=== PATIENT | male | born 1965 | race African-American/Black ===

== ENCOUNTER 2017-03-12 22:34 | Emergency (ER) | payer MEDICAID ==
[~2017-03-12] VITALS: Ht 177.8 cm; Wt 87.7 kg
[2017-03-12 22:37] VITALS: BP 145/83
[2017-03-12] MEDS ORDERED: LIDOCAINE 1%, 20ML ONE (22:45)
[2017-03-12] MEDS ORDERED: CEFAZOLIN 1,000 MG IM ONE (23:00)
[2017-03-12] MEDS ORDERED: LIDOCAINE 1%, 20ML SQ ONE (23:00)
[2017-03-12] MEDS ORDERED: SULFAMETH./TRIMETHOPRIM DS 800MG/160MG TABLET PO ONE (23:00)
[2017-03-12] MEDS ORDERED: CEFAZOLIN 1,000 MG ONE (23:14)
[2017-03-12] MEDS ORDERED: SULFAMETH./TRIMETHOPRIM DS 800MG/160MG TABLET ONE (23:14)
== END 2017-03-12 23:39 | disposition home or self-care (01) ==
LOC: ED 23:33
DX: L03.311 Cellulitis of abdominal wall (principal); L02.211 Cutaneous abscess of abdominal wall; I10 Essential (primary) hypertension; E11.9 Type 2 diabetes mellitus without complications
CPT/HCPCS: 10060; 96372; 99283; J0690

== ENCOUNTER 2017-07-12 10:57 | Emergency (ER) | payer MEDICAID ==
[~2017-07-12] VITALS: Ht 177.8 cm; Wt 71.7 kg
[2017-07-12] MEDS ORDERED: SODIUM CHLORIDE 0.9% 1,000ML IVBOLUS ONE (11:30)
[2017-07-12 12:02] LABS: HEMATOCRIT 50.5 % (39.2-51.8); HEMOGLOBIN 16.8 g/dL (13.7-18.0)
[2017-07-12 12:07] LABS: ASPARTATE AMINO TRANSFERASE 16 U/L (15-37); BLOOD UREA NITROGEN 22 mg/dL (7-18)
[2017-07-12] MEDS ORDERED: INSULIN REGULAR 100 UNITS/ML, 3ML VIAL ONE ×2 (13:36→14:35)
[2017-07-12] MEDS ORDERED: INSULIN REGULAR 100 UNITS/ML, 3ML VIAL IVPush ONE ×2 (14:00→15:00)
[2017-07-12] MEDS ORDERED: NALOXONE 1 MG/ML, 2ML ONE (14:08)
[2017-07-12] MEDS ORDERED: INSU100C5 SQ-INSULIN (14:16)
[2017-07-12] MEDS ORDERED: QUET400T4 PO (14:16)
[2017-07-12] MEDS ORDERED: DIVA500T2 PO ×2 (14:16)
[2017-07-12] MEDS ORDERED: INSU100V8 SQ (14:16)
[2017-07-12] MEDS ORDERED: QUET300T5 PO (14:16)
[2017-07-12] MEDS ORDERED: blood pressure med PO (14:16)
[2017-07-12] MEDS ORDERED: ARIP10TA33 PO (14:16)
[2017-07-12 15:56] VITALS: BP 127/81
== END 2017-07-12 15:58 | disposition home or self-care (01) ==
LOC: ED 15:52
DX: R23.4 Changes in skin texture (principal); E11.9 Type 2 diabetes mellitus without complications; R11.2 Nausea with vomiting, unspecified; R09.81 Nasal congestion; F31.9 Bipolar disorder, unspecified; I11.0 Hypertensive heart disease with heart failure; I50.9 Heart failure, unspecified; J45.909 Unspecified asthma, uncomplicated; Z79.4 Long term (current) use of insulin; Z91.14 Patient's other noncompliance with medication regimen; Z91.19 Patient's noncompliance with other medical treatment and regimen
CPT/HCPCS: 36415; 71020; 80053; 81003; 82010; 82800; 82962; 83605; 83690; 85025; 96361; 96374; 96376; 99285; J7030

== ENCOUNTER 2020-12-02 22:50 | Emergency (ER) | payer MEDICAID ==
[~2020-12-02] VITALS: Ht 180.3 cm; Wt 87.0 kg
[~2020-12-02 22:50] MED LIST: ARIP10TA33 PO; DIVA500T2 PO; INSU100C5 SQ-INSULIN; INSU100V8 SQ; QUET300T5 PO; QUET400T4 PO; blood pressure med PO
--- NOTE | 2020-12-02 22:56 | NUR ---
ASSUMED CARE OF PATIENT. PATIENT MARICRUZ REM FROM THE GROUP HOME, PT WAS REFUSED FROM THE GROUP HOME FOR HIGH BLOOD SUGAR PER EMS. PT REPORTS PAINFUL URINATION. PT ALSO REPORTS HE HAS NO BEEN TAKING HIS INSULIN. VS STABLE. NO ACUTE DISTRESS NOTED. CALL LIGHT IN [place]. WILL CONTINUE TO MONITOR.
[2020-12-02 23:11] LABS: MICROSCOPIC NOT IND
--- NOTE | 2020-12-02 23:26 | NUR ---
LAB IN ROOM
[2020-12-02 23:35] LABS: BASOPHILS % (AUTO) 1 % (0-1); EOSINOPHILS % (AUTO) 0 % (1-7); LYMPHOCYTES % (AUTO) 31 % (22-44); MD NO; MEAN CORPUSCULAR HEMOGLOBIN 26.6 pg (27.5-34.5); MEAN CORPUSCULAR HGB CONC 32.8 g/dL (33.2-36.2); MEAN PLATELET VOLUME 7.8 fL (7.4-10.4); MONOCYTES % (AUTO) 17 % (2-9); NEUTROPHILS % (AUTO) 51 % (42-75); PLATELET COUNT 280 x10^3/uL (130-400); RED BLOOD COUNT 4.88 x10^6/uL (4.38-5.82); RED CELL DISTRIBUTION WIDTH 14.4 % (9.4-14.8)
[2020-12-02 23:44] LABS: ALBUMIN 3.7 g/dL (3.4-5.0); ANION GAP 11 mmol/L (5-15); CALCIUM 8.4 mg/dL (8.5-10.1); CHLORIDE 100 mmol/L (98-107); CREATININE 1.28 mg/dL (0.7-1.3)
[2020-12-03] MEDS ORDERED: INSULIN SINGLE DOSE, ER ONE (00:49)
[2020-12-03] MEDS ORDERED: INSULIN GLARGINE 100 UNITS/ML, PEN SQ-INSULIN ONE (01:00)
[2020-12-03] MEDS ORDERED: INSULIN REGULAR 100 UNITS/ML, 3ML VIAL SQ-INSULIN ONE (01:00)
[2020-12-03 01:05] VITALS: BP 129/85
--- NOTE | 2020-12-03 01:36 | NUR ---
PT GIVEN MEDICATION EDUCTION, MEDICATION ASSISTANCE INFORMATION ALSO PROVIDED. PT IS A&O X4, VS STABLE. PT IS ABLE TO GET SELF DRESSED AND AMBULATE SAFELY AROUND ROOM AND GARRETT. PT REQUESTING A [facility]. PT HAS CELL PHONE. PT GIVEN FOOD TO GO. PT IN APPROPRIATE CLOTHING FOR WEATHER. PT DR GONZALEZ PT DOES NOT NEED TO STAY FOR GLUCOSE MONITORING. PT DISCHARGED PER DR GONZALEZ.
== END 2020-12-03 01:41 | disposition home or self-care (01) ==
LOC: ED 23:25
DX: F15.10 Other stimulant abuse, uncomplicated (principal); Z76.0 Encounter for issue of repeat prescription; Z72.9 Problem related to lifestyle, unspecified; F17.210 Nicotine dependence, cigarettes, uncomplicated; R30.0 Dysuria; I11.0 Hypertensive heart disease with heart failure; I50.9 Heart failure, unspecified; E11.9 Type 2 diabetes mellitus without complications; J45.909 Unspecified asthma, uncomplicated
CPT/HCPCS: 36415; 80048; 81003; 82040; 82962; 85025; 99283; 99406; J1815